=== PATIENT | female | born 1985 | race Caucasian/White ===

== ENCOUNTER 2025-05-26 07:27 | Emergency (ER) | payer BC ==
[~2025-05-26] VITALS: Ht 154.9 cm; Wt 86.2 kg
[2025-05-26 07:27] VITALS: BP 143/90; PULSE 90; RESP 16; RESP 18; TEMP 98.4; O2SAT 98
[2025-05-26 08:02] LABS: BASOPHIL # 0.0 10^3/uL (0.0-0.1); BASOPHIL % 0.3 % (0.1-1.2); EOSINOPHIL # 0.1 10^3/uL (0.0-0.2); EOSINOPHIL % 1.5 % (0.0-5.0); HEMATOCRIT(ML) 44.1 % (36.0-46.0); IG % 0.10 % (0.00-0.50); LYMPHOCYTES # 2.39 10^3/uL1 (1.0-4.8); LYMPHOCYTES % 35.6 % (24.0-44.0); MEAN CORP HGB 30.0 pg (26-34); MEAN CORP HGB CONCENTRATION 33.8 g/dL (33-36.5); MEAN CORP VOLUME 88.9 fL (78-100); MONOCYTES # 0.7 10^3/uL (0.3-0.8); MONOCYTES % 9.7 % (5.0-12.0); NEUTROPHIL # 3.6 10^3/uL (1.8-7.7); NEUTROPHILS % 52.8 % (41.0-85.0); RED BLOOD CELL 4.96 10^6/uL (4.00-5.20); RED CELL DISTRIBUTION WIDTH 12.6 % (11.5-14.5); WHITE BLOOD CELL 6.7 10^3/uL (4.5-11.0)
[2025-05-26 08:20] LABS: ALANINE AMINOTRANSFERASE(ML) 33 U/L (12-78); ALBUMIN(ML) 4.1 g/dL (3.4-5.0); CREATININE SERUM 0.73 mg/dL (0.59-1.40); EST GFR, NON-AA 89.2 (>/=60)
[2025-05-26 08:21] LABS: TROPONIN I HIGH SENSITIVITY < 4 ng/L (0-50)
[2025-05-26 08:30] VITALS: BP 115/73; PULSE 82; RESP 16; O2SAT 98
[2025-05-26] MEDS ORDERED: ANCEF IM STA (08:41)
[2025-05-26 09:00] VITALS: BP 110/77; PULSE 81; RESP 16; O2SAT 96
== END 2025-05-26 09:00 | disposition home or self-care (01) ==
LOC: ER 07:27
DX: F41.0 Panic disorder [episodic paroxysmal anxiety] (principal)
CPT/HCPCS: 36415; 71045; 80053; 84484; 85025; 85379; 93005; 99284